=== PATIENT | male | born 1940 | race Caucasian/White ===

== ENCOUNTER 2018-12-19 06:23 | Day surgery (SDC) | payer OTHER ==
[2018-12-19] MEDS ORDERED: LIDOCAINE 2% (SDV) 5 ML INJ (09:35)
[2018-12-19] MEDS ORDERED: PROPOFOL 40 ML (09:35)
== END 2018-12-19 11:41 | disposition home or self-care (01) ==
LOC: GIL 06:23
DX: K92.1 Melena (principal); K64.8 Other hemorrhoids; D12.5 Benign neoplasm of sigmoid colon; K57.30 Diverticulosis of large intestine without perforation or abscess without bleeding; I10 Essential (primary) hypertension
CPT/HCPCS: 45380; 88305